=== PATIENT | female | born 2000 | race Two or more races ===

== ENCOUNTER 2024-06-22 13:54 | Emergency (ER) | payer OTHER ==
[~2024-06-22] VITALS: Ht 162.6 cm; Wt 83.5 kg
[2024-06-22] MEDS ORDERED: METOCLOPRAMIDE HCL 5 MG/ML VIAL IM STA (14:58)
[2024-06-22] MEDS ORDERED: SUMATRIPTAN SUCCINATE 6 MG/0.5 ML VIAL SUBCUTANEO STA (15:00)
[2024-06-22] MEDS ORDERED: DEXAMETHASONE SODIUM PHOSPHATE 4 MG/ML VIAL IM STA (15:03)
[2024-06-22] MEDS ORDERED: KETOROLAC TROMETHAMINE 15 MG VIAL IM STA (15:09)
[2024-06-22 15:46] LABS: HEMATOCRIT 37.8 % (36.0-45.00); HEMOGLOBIN 12.7 g/dL (12.0-15.00); MEAN CELL VOLUME 92.3 fL (80.00-100.00); MEAN CORPUSCULAR HEMOGLOBIN 31.1 pg (27.00-32.0); MEAN CORPUSCULAR HGB CONC 33.7 g/dl (32.0-36.0); PLATELET COUNT 363 K/uL (150-450); RED BLOOD COUNT 4.09 M/uL (4.00-6.00); RED CELL DISTRIBUTION WIDTH 13.7 % (11.5-14.5)
[2024-06-22] MEDS ORDERED: BUTALBIT-ACETA1 EACH PO (17:26)
[2024-06-22 20:19] VITALS: BP 107/69; O2SAT 98
== END 2024-06-22 20:22 | disposition home or self-care (01) ==
LOC: ER 13:54
DX: R51.9 Headache, unspecified (principal); Z20.822 Contact with and (suspected) exposure to COVID-19